=== PATIENT | female | born 1975 | race African-American/Black ===

== ENCOUNTER 2019-04-05 22:46 | Emergency (ER) | payer SELFPAY ==
[~2019-04-05] VITALS: Ht 165.1 cm; Wt 89.8 kg
[2019-04-06] MEDS ORDERED: KETOROLAC 30MG/ML VIAL IV STA (00:10)
[2019-04-06] MEDS ORDERED: SODIUM CHLORIDE 0.9% 1,000 ML IV ONE (00:12)
[2019-04-06] MEDS ORDERED: AMLODIPINE 10MG TABLET PO ONE (00:15)
[2019-04-06] MEDS ORDERED: METOCLOPRAMIDE HCL 10MG/2ML VIAL IV ONE (00:15)
[2019-04-06 00:56] VITALS: BP 202/112
== END 2019-04-06 02:19 | disposition home or self-care (01) ==
LOC: ER 22:46
DX: I10 Essential (primary) hypertension (principal); R51 Headache
CPT/HCPCS: 96374; 96375; 99283; J1885; J2765; J7030